=== PATIENT | female | born 1955 | race Caucasian/White ===

== ENCOUNTER 2016-11-14 10:34 | Day surgery (SDC) | payer OTHER ==
[~2016-11-14 10:34] MED LIST: VERSED ONE
[2016-11-14] MEDS ORDERED: NS 500 ML IV 500 ML IV ONE (10:54)
[2016-11-14] MEDS ORDERED: VERSED ONE (11:06)
[2016-11-14] MEDS ORDERED: TETRACAINE 0.5% OPHTH 1 DOSE AFFEYE ONE ×4 (11:45→15:07)
[2016-11-14] MEDS ORDERED: VIGAMOX 0.5% OPHTH 1 DOSE AFFEYE ONE ×5 (11:50→15:19)
[2016-11-14] MEDS ORDERED: PROLENSA OPHTH 1 DOSE AFFEYE ONE (12:05)
[2016-11-14] MEDS ORDERED: ALPHAGAN-P OPHTH 1 DOSE AFFEYE ONE (12:06)
[2016-11-14] MEDS ORDERED: CYCLOGYL 1% OPHTH 1 DOSE OP ONE ×3 (12:07→12:09)
[2016-11-14] MEDS ORDERED: MYDRIACIL OPHTH 1 DOSE AFFEYE ONE ×3 (12:07→12:09)
[2016-11-14] MEDS ORDERED: AK-DILATE 2.5% OPHTH 1 DOSE OP ONE ×3 (12:07→12:09)
[2016-11-14] MEDS ORDERED: AK-DILATE 10% OPHTH 1 DOSE AFFEYE ONE (14:31)
[2016-11-14] MEDS ORDERED: BETADINE OPHTH SOLN 5% EACHEYE ONE (14:48)
[2016-11-14] MEDS ORDERED: ADRENALINE CHL INJ IJ ONE ×2 (14:51→15:08)
[2016-11-14] MEDS ORDERED: XYLOCAINE-MPF 1% IJ ONE ×2 (14:51→15:08)
[2016-11-14] MEDS ORDERED: BSS OPHTH (PLAIN) 500 ML with VANCOMYCIN HCL 500 MG VIAL 25 MG, ADRENALINE CHL INJ 1 MG IR ONE ×6 (14:51)
[2016-11-14] MEDS ORDERED: DUOVISC IO ONE ×2 (14:51→15:08)
[2016-11-14 15:42] VITALS: BP 148/70
== END 2016-11-14 15:40 | disposition home or self-care (01) ==
LOC: SURG1 10:34
PROVIDERS: ATTEND Ophthalmology
PROC: 08J0XZZ Inspection of Right Eye, External Approach (ICD-10-PCS; principal; 2016-11-14 16:30)
PROC: 08RJ3JZ Replacement of Right Lens with Synthetic Substitute, Percutaneous Approach (ICD-10-PCS; principal; 2016-11-14 16:30)
PROC: 08DJ3ZZ Extraction of Right Lens, Percutaneous Approach (ICD-10-PCS; principal; 2016-11-14 16:30)
DX: H25.11 Age-related nuclear cataract, right eye (principal); H52.221 Regular astigmatism, right eye
CPT/HCPCS: A4217; J0170; J2250; J3370